=== PATIENT | male | born 1995 | race African-American/Black ===

== ENCOUNTER 2020-01-14 20:27 | Emergency (ER) | payer MEDICAID ==
[~2020-01-14] VITALS: Ht 190.5 cm; Wt 59.0 kg
[2020-01-14 21:38] LABS: Basophils # (auto) 0.1 10 ^3/uL (0-0.2); Basophils % (auto) 1.1 % (0.0-2.0); Eosinophils # (auto) 0 10 ^3/uL (0-0.8); Eosinophils % (auto) 0.5 % (0.0-7.0); Hematocrit 39.6 % (41.0-53.0); Hemoglobin 12.9 g/dL (13.5-17.5); Lymphocytes # (auto) 2.5 10 ^3/uL (0.4-5.4); Lymphocytes % (auto) 44.3 % (10.0-50.0); Mean Corpuscular Hemoglobin 28.3 pg (28.0-32.0); Mean Corpuscular Hgb Conc. 32.7 g/dL (32.0-36.0); Mean Corpuscular Volume 86.3 fL (80.0-100.0); Monocytes # (auto) 0.4 10 ^3/uL (0-1.3); Monocytes % (auto) 7.1 % (0.0-12.0); Neutrophils # (auto) 2.6 10 ^3/uL (1.6-8.6); Nucleated Red Blood Cells % 0.1 %; Platelet Count (auto) 188 10^3/uL (140-450); Red Blood Cells 4.58 10^6/uL (4.5-5.90); White Blood Cell 5.6 10^3/uL (4.4-10.8)
[2020-01-14 21:57] LABS: Albumin 4.4 g/dL (3.4-5.0); Calcium 9.1 mg/dL (8.5-10.1); Potassium 4.2 mmol/L (3.5-5.1)
[2020-01-14 22:00] LABS: Bilirubin, Total 0.4 mg/dL (0.2-1.0); Total Protein 8.1 g/dL (6.4-8.2)
[2020-01-14 22:02] LABS: BUN/Creatinine Ratio 9.5
[2020-01-15 00:22] VITALS: BP 107/48
== END 2020-01-15 01:52 | disposition home or self-care (01) ==
LOC: ER 20:31
DX: K40.90 Unilateral inguinal hernia, without obstruction or gangrene, not specified as recurrent (principal); N50.811 Right testicular pain; F17.210 Nicotine dependence, cigarettes, uncomplicated; F12.10 Cannabis abuse, uncomplicated
CPT/HCPCS: 36415; 74176; 76870; 80053; 85025

== ENCOUNTER 2020-04-23 10:26 | Emergency (ER) | payer MEDICAID ==
[~2020-04-23] VITALS: Ht 193 cm; Wt 61.2 kg
[2020-04-23] MEDS ORDERED: SODIUM CHLORIDE 0.9% 1,000 ML IVB ONE (10:42)
[2020-04-23] MEDS ORDERED: PANTOPRAZOLE 40 MG/10 ML VIAL INJ IV STA (10:42)
[2020-04-23] MEDS ORDERED: MORPHINE SULFATE 4 MG/ML SYR/VIAL IV ONE (10:45)
[2020-04-23] MEDS ORDERED: PROCHLORPERAZINE EDISYLATE 5 MG/ML 2ML VIAL IV ONE (10:45)
[2020-04-23 11:09] LABS: Basophils # (auto) 0.1 10 ^3/uL (0-0.2); Basophils % (auto) 0.9 % (0.0-2.0); Eosinophils # (auto) 0 10 ^3/uL (0-0.8); Eosinophils % (auto) 0.1 % (0.0-7.0); Hematocrit 41.8 % (41.0-53.0); Hemoglobin 13.7 g/dL (13.5-17.5); Lymphocytes # (auto) 1.8 10 ^3/uL (0.4-5.4); Mean Corpuscular Hemoglobin 28.4 pg (28.0-32.0); Mean Corpuscular Hgb Conc. 32.8 g/dL (32.0-36.0); Mean Corpuscular Volume 86.5 fL (80.0-100.0); Monocytes # (auto) 0.4 10 ^3/uL (0-1.3); Monocytes % (auto) 6.6 % (0.0-12.0); Neutrophils # (auto) 4.3 10 ^3/uL (1.6-8.6); Neutrophils % (auto) 65.4 % (37.0-80.0); Nucleated Red Blood Cells % 0.1 %; Platelet Count (auto) 184 10^3/uL (140-450); Red Blood Cells 4.83 10^6/uL (4.5-5.90); Red Cell Distribution Width 12.8 % (11.8-14.3); White Blood Cell 6.5 10^3/uL (4.4-10.8)
[2020-04-23 11:31] LABS: Albumin 4.3 g/dL (3.4-5.0); BUN/Creatinine Ratio 10.5; Calcium 9.4 mg/dL (8.5-10.1); Potassium 3.3 mmol/L (3.5-5.1)
[2020-04-23 11:37] LABS: Bilirubin, Total 1.1 mg/dL (0.2-1.0); Total Protein 8.3 g/dL (6.4-8.2)
[2020-04-23 13:01] VITALS: BP 104/43
== END 2020-04-23 13:14 | disposition home or self-care (01) ==
LOC: ER 10:26 → EDBD 10:26 → ER 13:14
DX: F12.188 Cannabis abuse with other cannabis-induced disorder (principal); R11.2 Nausea with vomiting, unspecified
CPT/HCPCS: 36415; 80053; 83690; 85025; 96361; 96374; 96375; 99284; C9113; J0780; J2270; J7030

== ENCOUNTER 2020-07-03 09:57 | Emergency (ER) | payer MEDICAID, OTHER ==
[~2020-07-03] VITALS: Ht 182.9 cm; Wt 77.1 kg
[2020-07-03] MEDS ORDERED: SODIUM CHLORIDE 0.9% 1,000 ML IVB ONE (11:15)
[2020-07-03 12:11] LABS: Basophils # (auto) 0 10 ^3/uL (0-0.2); Basophils % (auto) 0.5 % (0.0-2.0); Eosinophils # (auto) 0 10 ^3/uL (0-0.8); Hematocrit 41.3 % (41.0-53.0); Hemoglobin 13.4 g/dL (13.5-17.5); Lymphocytes # (auto) 1.3 10 ^3/uL (0.4-5.4); Lymphocytes % (auto) 17.4 % (10.0-50.0); Mean Corpuscular Hemoglobin 28.2 pg (28.0-32.0); Mean Corpuscular Hgb Conc. 32.5 g/dL (32.0-36.0); Mean Corpuscular Volume 86.7 fL (80.0-100.0); Monocytes # (auto) 0.6 10 ^3/uL (0-1.3); Monocytes % (auto) 7.6 % (0.0-12.0); Neutrophils # (auto) 5.5 10 ^3/uL (1.6-8.6); Neutrophils % (auto) 74.5 % (37.0-80.0); Platelet Count (auto) 197 10^3/uL (140-450); Red Blood Cells 4.76 10^6/uL (4.5-5.90); Red Cell Distribution Width 12.5 % (11.8-14.3); White Blood Cell 7.4 10^3/uL (4.4-10.8)
[2020-07-03 12:30] LABS: Albumin 4.4 g/dL (3.4-5.0); Calcium 9.2 mg/dL (8.5-10.1); Potassium 3.3 mmol/L (3.5-5.1)
[2020-07-03 12:36] LABS: BUN/Creatinine Ratio 8.8; Bilirubin, Total 0.8 mg/dL (0.2-1.0); Total Protein 8.1 g/dL (6.4-8.2)
[2020-07-03] MEDS ORDERED: POTASSIUM EFFERVESENT TAB 25 MEQ GT ONE (14:00)
[2020-07-03] MEDS ORDERED: ONDANSETRON ODT 4 MG TAB PO ONE (15:30)
[2020-07-03 17:54] VITALS: BP 97/40
== END 2020-07-03 16:53 | disposition home or self-care (01) ==
LOC: ER 09:57 → EDBD 09:57 → ER 16:53
DX: K52.9 Noninfective gastroenteritis and colitis, unspecified (principal); E87.6 Hypokalemia; F17.210 Nicotine dependence, cigarettes, uncomplicated
CPT/HCPCS: 36415; 71045; 74176; 80053; 82150; 83690; 83735; 85025; 93005; 96360; 99285; J7030; Q0162

== ENCOUNTER 2020-12-17 02:56 | Emergency (ER) | payer OTHER ==
[~2020-12-17] VITALS: Ht 190.5 cm; Wt 68.0 kg
[2020-12-17 04:00] LABS: Basophils # (auto) 0 10 ^3/uL (0-0.2); Basophils % (auto) 0.2 % (0.0-2.0); Eosinophils # (auto) 0 10 ^3/uL (0-0.8); Hemoglobin 12.2 g/dL (13.5-17.5); Lymphocytes % (auto) 10.3 % (10.0-50.0); Mean Corpuscular Hemoglobin 28.3 pg (28.0-32.0); Mean Corpuscular Hgb Conc. 32.9 g/dL (32.0-36.0); Mean Corpuscular Volume 85.8 fL (80.0-100.0); Monocytes # (auto) 0.2 10 ^3/uL (0-1.3); Monocytes % (auto) 2.5 % (0.0-12.0); Neutrophils # (auto) 8.1 10 ^3/uL (1.6-8.6); Nucleated Red Blood Cells % 0.1 %; Platelet Count (auto) 204 10^3/uL (140-450); Red Blood Cells 4.31 10^6/uL (4.5-5.90); Red Cell Distribution Width 13.1 % (11.8-14.3); White Blood Cell 9.3 10^3/uL (4.4-10.8)
[2020-12-17] MEDS ORDERED: SODIUM CHLORIDE 0.9% 1,000 ML IV ONE (04:15)
[2020-12-17] MEDS ORDERED: ONDANSETRON HCL 4 MG/2 ML VIAL IV ONE (04:15)
[2020-12-17 04:21] LABS: Albumin 4.1 g/dL (3.4-5.0); Calcium 8.7 mg/dL (8.5-10.1); Potassium 3.6 mmol/L (3.5-5.1)
[2020-12-17 04:26] LABS: Bilirubin, Total 0.6 mg/dL (0.2-1.0)
[2020-12-17 05:21] LABS: Urine Bacteria NONE SEEN /hpf (None Seen); Urine Blood Negative /uL (Negative); Urine Mucus FEW (None Seen); Urine Specific Gravity 1.016 (1.001-1.035); Urine WBC 4 /hpf (0 - 3)
[2020-12-17 06:10] VITALS: BP 109/55
== END 2020-12-17 06:14 | disposition home or self-care (01) ==
LOC: EDBD 02:56 → ER 03:01
DX: K52.9 Noninfective gastroenteritis and colitis, unspecified (principal); F17.210 Nicotine dependence, cigarettes, uncomplicated
CPT/HCPCS: 36415; 74176; 80053; 81001; 82150; 83690; 85025; 96361; 96374; 99284; J2405; J7030

== ENCOUNTER 2020-12-18 11:04 | Emergency (ER) | payer OTHER ==
[~2020-12-18] VITALS: Ht 190.5 cm; Wt 72.6 kg
[2020-12-18] MEDS ORDERED: SODIUM CHLORIDE 0.9% 1,000 ML IV ONE ×2 (11:30)
[2020-12-18 13:06] LABS: Basophils # (auto) 0 10 ^3/uL (0-0.2); Basophils % (auto) 0.6 % (0.0-2.0); Eosinophils # (auto) 0 10 ^3/uL (0-0.8); Eosinophils % (auto) 0.2 % (0.0-7.0); Hematocrit 36.5 % (41.0-53.0); Hemoglobin 12.2 g/dL (13.5-17.5); Lymphocytes # (auto) 1.1 10 ^3/uL (0.4-5.4); Lymphocytes % (auto) 13.7 % (10.0-50.0); Mean Corpuscular Hemoglobin 28.7 pg (28.0-32.0); Mean Corpuscular Hgb Conc. 33.3 g/dL (32.0-36.0); Monocytes # (auto) 0.5 10 ^3/uL (0-1.3); Monocytes % (auto) 6.6 % (0.0-12.0); Neutrophils # (auto) 6.1 10 ^3/uL (1.6-8.6); Neutrophils % (auto) 78.9 % (37.0-80.0); Nucleated Red Blood Cells % 0.1 %; Platelet Count (auto) 184 10^3/uL (140-450); Red Blood Cells 4.24 10^6/uL (4.5-5.90); Red Cell Distribution Width 12.7 % (11.8-14.3); White Blood Cell 7.8 10^3/uL (4.4-10.8)
[2020-12-18 13:12] LABS: INR 1.1 (0.9-1.15); Partial Thromboplastin Time 31.2 sec (23.0-31.2)
[2020-12-18 13:24] LABS: Anion Gap 6 (5-15); BUN/Creatinine Ratio 13.3; Blood Urea Nitrogen 11 mg/dL (7-18); Calcium 8.8 mg/dL (8.5-10.1); Carbon Dioxide 26 mmol/L (21-32); Chloride 106 mmol/L (98-107); GFR African American 144 mL/min; GFR Non-African American 119 mL/min; Glucose 98 mg/dL (74-106); Potassium 3.5 mmol/L (3.5-5.1); Sodium 138 mmol/L (136-145)
[2020-12-18 13:34] LABS: Alanine Aminotransferase 21 U/L (16-61); Alkaline Phosphatase 40 U/L (45-117); Aspartate Aminotransferase 20 U/L (15-37); Bilirubin, Total 1.1 mg/dL (0.2-1.0); Total Protein 7.2 g/dL (6.4-8.2)
[2020-12-18 13:44] LABS: Amylase 91 U/L (25-115); Lipase 55 U/L (73-393)
[2020-12-18] MEDS ORDERED: KETOROLAC TROMETH 30 MG/ML 1ML VIAL IV ONE (14:30)
[2020-12-18] MEDS ORDERED: PROMETHAZINE HCL 25 MG/ML 1ML IV ONE (15:00)
[2020-12-18 15:07] LABS: Urine WBC None Seen /hpf (0 - 3)
[2020-12-18 15:25] LABS: Urine Amorphous Crystal MANY /hpf (None Seen); Urine Bacteria NONE SEEN /hpf (None Seen); Urine Blood Negative /uL (Negative); Urine Mucus FEW (None Seen); Urine Specific Gravity 1.026 (1.001-1.035)
[2020-12-18 15:51] LABS: Alcohol, Urine < 3.0 mg/dL (0-10); Amphetamine Screen, Urine NEGATIVE (NEGATIVE); Barbiturate Scree,Urine NEGATIVE (NEGATIVE); Benzodiazephine Screen, Urine NEGATIVE (NEGATIVE); Cannabinoid Screen, Urine POSITIVE (NEGATIVE); Cocaine Screen, Urine NEGATIVE (NEGATIVE); Opiate Scree,Urine NEGATIVE (NEGATIVE); Phencyclidine Screen, Urine NEGATIVE (NEGATIVE)
[2020-12-18 16:23] VITALS: BP 135/75
== END 2020-12-18 17:42 | disposition home or self-care (01) ==
LOC: EDBD 11:04 → ER 11:04
DX: R10.84 Generalized abdominal pain (principal); F12.10 Cannabis abuse, uncomplicated; F17.210 Nicotine dependence, cigarettes, uncomplicated; R11.2 Nausea with vomiting, unspecified
CPT/HCPCS: 36415; 71045; 74176; 80053; 80307; 81001; 82150; 83690; 84484; 85025; 85610; 85730; 93005; 96361; 96374; 96375; 99285; J1885; J2550; J7030

== ENCOUNTER 2022-07-10 23:03 | Emergency (ER) | payer OTHER ==
[~2022-07-10] VITALS: Ht 190.5 cm; Wt 67.0 kg
[2022-07-10 23:36] LABS: Basophils # (auto) 0 10 ^3/uL (0-0.2); Basophils % (auto) 0.5 % (0.0-2.0); Eosinophils # (auto) 0 10 ^3/uL (0-0.8); Hematocrit 38.4 % (41.0-53.0); Hemoglobin 12.6 g/dL (13.5-17.5); Lymphocytes # (auto) 0.7 10 ^3/uL (0.4-5.4); Lymphocytes % (auto) 7.1 % (10.0-50.0); Mean Corpuscular Hemoglobin 28.1 pg (28.0-32.0); Mean Corpuscular Hgb Conc. 32.8 g/dL (32.0-36.0); Mean Corpuscular Volume 85.9 fL (80.0-100.0); Monocytes # (auto) 0.2 10 ^3/uL (0-1.3); Monocytes % (auto) 1.9 % (0.0-12.0); Neutrophils # (auto) 8.6 10 ^3/uL (1.6-8.6); Neutrophils % (auto) 90.5 % (37.0-80.0); Red Blood Cells 4.47 10^6/uL (4.5-5.90); Red Cell Distribution Width 12.9 % (11.8-14.3); White Blood Cell 9.5 10^3/uL (4.4-10.8)
[2022-07-10 23:52] LABS: Albumin 4.5 g/dL (3.4-5.0); Calcium 9.5 mg/dL (8.5-10.1); Potassium 3.5 mmol/L (3.5-5.1)
[2022-07-10 23:55] LABS: BUN/Creatinine Ratio 8.9; Bilirubin, Total 0.5 mg/dL (0.2-1.0); Total Protein 8.5 g/dL (6.4-8.2)
[2022-07-11] MEDS ORDERED: ONDANSETRON HCL 4 MG/2 ML VIAL IV ONE (00:15)
[2022-07-11] MEDS ORDERED: SODIUM CHLORIDE 0.9% 1,000 ML IV ONE (00:15)
[2022-07-11] MEDS ORDERED: MORPHINE SULFATE 4 MG/ML SYR/VIAL IV ONE (00:15)
[2022-07-11 05:55] VITALS: BP 120/74
== END 2022-07-11 06:02 | disposition home or self-care (01) ==
LOC: ER 23:03 → EDBD 23:03 → ER 07-11 05:59
DX: R10.31 Right lower quadrant pain (principal); F17.210 Nicotine dependence, cigarettes, uncomplicated; F12.10 Cannabis abuse, uncomplicated
CPT/HCPCS: 36415; 74176; 80053; 82150; 83690; 85025; 96361; 96374; 96375; 99285; J2270; J2405; J7030

== ENCOUNTER 2025-03-18 09:05 | Emergency (ER) | payer SELFPAY ==
[~2025-03-18] VITALS: Ht 190.5 cm; Wt 69.0 kg
[2025-03-18 09:27] VITALS: BP 151/89; PULSE 48; RESP 18; TEMP 98.9; O2SAT 100
[2025-03-18] MEDS ORDERED: SODIUM CHLORIDE 0.9% 1,000 ML IV ONE (09:30)
[2025-03-18] MEDS ORDERED: ONDANSETRON HCL 4 MG/2 ML VIAL IV ONE (09:30)
--- NOTE | 2025-03-18 09:40 | ED.PDOC ---
GI ASSESSMENT HPI Comments 29 year old male KAMAR presents to the ED with chief complaint of abdominal pain. Patient reports that he has been experiencing lower abdominal pain with associated nausea and vomiting since this morning. Patient denies any hematemesis, melena, dizziness, diarrhea, chest pain, SOB, or fever. Chief Complaint: Abdominal Pain Time Seen by MD: 09:35 Primary Care Provider: KEVIN Reviewed Notes: Nurses Notes, Medications, Allergies Allergies: Coded Allergies: NO KNOWN ALLERGIES (Unverified , 12/18/20) Information Source: Patient Mode of Arrival: EMS Timing: Days Duration: Since onset Prehospital treatment: None Quality: Aching Vomitus: None Stool: Normal Severity: Moderate Recent: None Recent Hx of: None Pain Location: Suprapubic Modifying Factors: Nothing Associated sign and symptoms: Nausea, Vomiting, Abdominal Pain Past Medical History PAST MEDICAL HISTORY: Denies Surgical History: Denies all surgeries Family History Family History: Reviewed,noncontributory to illness Social History Smoker: Cigarettes Alcohol: Occasionally Drugs: Marijuana Lives In: Home Constitutional: denies: chills, diaphoresis, fatigue, fever, malaise, sweats, weakness, others EENTM: denies: blurred vision, double vision, ear bleeding, ear discharge, ear drainage, ear pain, ear ringing, eye pain, eye redness, hearing loss, mouth pain, mouth swelling, nasal discharge, nose bleeding, nose congestion, nose pain, photophobia, tearing, throat pain, throat swelling, voice changes, others Respiratory: denies: cough, hemoptysis, orthopnea, SOB at rest, shortness of breath, SOB with excertion, stridor, wheezing, others Cardiovascular: denies: chest pain, dizzy spells, diaphoresis, Dyspnea on exertion, edema, irregular heart beat, left arm pain, lightheadedness, palpitations, PND, syncope, others Gastrointestinal: reports: abdominal pain, nausea, vomiting; denies: abdomen distended, blood streaked bowels, constipated, diarrhea, dysphagia, difficulty swallowing, hematemesis, melena, poor appetite, poor fluid intake, rectal bleeding, rectal pain, others Genitourinary: denies: burning, dysuria, flank pain, frequency, hematuria, incontinence, penile discharge, penile sore, pain, testicle pain, testicle swelling, urgency, others Neurological: denies: dizziness, fainting, headache, left sided numbness, left sided weakness, numbness, paresthesia, pre-existing deficit, right sided numbness, right sided weakness, seizure, speech problems, tingling, tremors, weakness, others Musculoskeletal: denies: back pain, gout, joint pain, joint swelling, muscle pain, muscle stiffness, neck pain, others Integumetry: denies: bruises, change in color, change in hair/nails, dryness, laceration, lesions, lumps, rash, wounds, others Allergic/Immunocompromised: denies: Difficulty Healing, Frequent Infections, Hives, Itching, others Hematologic/Lymphatic: denies: anemia, blood clots, easy bleeding, easy bruising, swollen glands, others Endocrine: denies: excessive hunger, excessive sweating, excessive thirst, excessive urination, flushing, intolerance to cold, intolerance to heat, unexplained weight gain, unexplained weight loss, others Psychiatric: denies: anxiety, bipolar disorder, depression, hopeless, panic disorder, schizophrenia, sleepless, suicidal, others All Other Systems: Reviewed and Negative Physical Exam General Appearance: Moderate Distress, Normal HEENT: Normal ENT Inspection, PERRL/EOMI Neck: Full Range of Motion, Non-Tender, Normal, Normal Inspection Respiratory: Chest Non-Tender, Lungs Clear, No Accessory Muscle Use, No Respiratory Distress, Normal Breath Sounds Cardiovascular: No Edema, No JVD, No Murmur, No Gallop, Normal Peripheral Pulses, Regular Rate/Rhythm Breast Exam: Deferred Gastrointestinal: No Organomegaly, Non Tender, No Pulsatile Mass, Normal Bowel Sounds, Soft Genitalia: Deferred Pelvic: Deferred Rectal: Deferred Extremities: No calf tenderness, Normal capillary refill, Normal inspection, Normal range of motion, Non-tender, No pedal edema Musculoskeletal : Apperance: Normal Neurologic: Alert, ctrs II-XII nml as Tested, No Motor Deficits, Normal Affect, Normal Mood, No Sensory Deficits Cerebellar Function: Normal Reflexes: Normal Skin: Dry, Normal Color, Warm Peripheral Pulses: 3+ Radial (R), 3+ Radial (L) Lymphatic: No Adenopathy Was a procedure done? Was a procedure done?: No GI differential Dx Differential Diagnosis: Constipation, Diverticular disease, Esophagitis, Gastritis/PUD, Gastroenteritis, Dehydration, Drug toxicity, Electrolyte Imbalance, Food Poisoning, Bacterial, Viral X-Ray, Labs, Meds, VS Vital Signs Date Time Temp Pulse Resp B/P (MAP) Pulse Ox O2 Delivery O2 Flow Rate FiO2 03/18/25 09:27 98.9 48 18 151/89 (109) 100 98.9 Lab Test 03/18/25 09:38 Range/Units White Blood Count 6.8 4.4-10.8 10^3/uL Red Blood Count 4.80 4.5-5.90 10^6/uL Hemoglobin 13.6 13.5-17.5 g/dL Hematocrit 41.2 41.0-53.0 % Mean Corpuscular Volume 85.8 80.0-100.0 fL Mean Corpuscular Hemoglobin 28.3 28.0-32.0 pg Mean Corpuscular Hemoglobin Concent 33.0 32.0-36.0 g/dL Red Cell Distribution Width 12.8 11.8-14.3 % Platelet Count 226 140-450 10^3/uL Mean Platelet Volume 8.5 6.9-10.8 fL Neutrophils (%) (Auto) 75.0 37.0-80.0 % Lymphocytes (%) (Auto) 18.3 10.0-50.0 % Monocytes (%) (Auto) 5.5 0.0-12.0 % Eosinophils (%) (Auto) 0.6 0.0-7.0 % Basophils (%) (Auto) 0.6 0.0-2.0 % Neutrophils # (Auto) 5.1 1.6-8.6 10 ^3/uL Lymphocytes # (Auto) 1.2 0.4-5.4 10 ^3/uL Monocytes # (Auto) 0.4 0-1.3 10 ^3/uL Eosinophils # (Auto) 0 0-0.8 10 ^3/uL Basophils # (Auto) 0 0-0.2 10 ^3/uL Nucleated Red Blood Cells 0.1 % Sodium Level 141 136-145 mmol/L Potassium Level 3.8 3.5-5.1 mmol/L Chloride Level 105 98-107 mmol/L Carbon Dioxide Level 30 20-31 mmol/L Anion Gap 6 5-15 Blood Urea Nitrogen 11 9-23 mg/dL Creatinine 0.87 0.700-1.30 mg/dL Glomerular Filtration Rate Calc 118 >90 mL/min BUN/Creatinine Ratio 12.6 10.0-20.0 Serum Glucose 113 H 74-106 mg/dL Calcium Level 10.3 8.7-10.4 mg/dL Patient alert. Came in because of abdominal discomfort. Vitals stable. Answering questions. Abdomen is soft nontender. Ambulating. WBC within normal limits. Hemoglobin within normal limits. Saturation pristine on room air. Serum glucose slightly elevated. Explained to the patient about his results. Was told to follow up with his primary care physician. Was told to come back if there is any problem. Time of 1ST Reevaluation: 10:35 Reevaluation 1ST: Improved Time of 2ND Reevaluation: 17:32 Reevaluation 2ND: Improved Patient Education/Counseling: Diagnosis, Treatment Family Education/Counseling: No Family Present Additional Information The following tests were ordered, and results were reviewed by me: CBC, BMP, UDS Additional Information was gathered from interviewing the following independent historians: EMS I reviewed and agreed with the following test results read by other providers: none I discussed treatment and results with medical personnel and: patient Comprehensive systems review obtained and negative except for what is stated in the HPI. Departure 1 Departure Time of Disposition: 17:33 Impression: Primary Impression: Gastritis Qualified Codes: K29.00 - Acute gastritis without bleeding Disposition: 01 HOME / SELF CARE / HOMELESS Condition: Good Discharged With: Self Critical Care Note Critical Care Time?: No Stability Stability form required: No Heart Score Heart Score: Heart Score Response (Comments) Value History N/A 0 EKG N/A 0 Age N/A 0 Risk Factors N/A 0 Troponin N/A 0 Total 0 I personally scribed for FELY CUBA MD ([email or web address]) on 03/18/25 at 09:40. Electronically submitted by Mo Winkler ([email or web address]). FELY CUBA MD March 18, 2025 09:40
[2025-03-18 09:59] LABS: Basophils # (auto) 0 10 ^3/uL (0-0.2); Basophils % (auto) 0.6 % (0.0-2.0); Eosinophils # (auto) 0 10 ^3/uL (0-0.8); Eosinophils % (auto) 0.6 % (0.0-7.0); Hematocrit 41.2 % (41.0-53.0); Hemoglobin 13.6 g/dL (13.5-17.5); Lymphocytes # (auto) 1.2 10 ^3/uL (0.4-5.4); Lymphocytes % (auto) 18.3 % (10.0-50.0); Mean Corpuscular Hemoglobin 28.3 pg (28.0-32.0); Mean Corpuscular Volume 85.8 fL (80.0-100.0); Monocytes # (auto) 0.4 10 ^3/uL (0-1.3); Monocytes % (auto) 5.5 % (0.0-12.0); Neutrophils # (auto) 5.1 10 ^3/uL (1.6-8.6); Nucleated Red Blood Cells % 0.1 %; Platelet Count (auto) 226 10^3/uL (140-450); Red Cell Distribution Width 12.8 % (11.8-14.3); White Blood Cell 6.8 10^3/uL (4.4-10.8)
[2025-03-18 10:07] LABS: Chloride 105 mmol/L (98-107); Potassium 3.8 mmol/L (3.5-5.1); Sodium 141 mmol/L (136-145)
[2025-03-18 10:08] LABS: Anion Gap 6 (5-15); Carbon Dioxide 30 mmol/L (20-31)
[2025-03-18 10:09] LABS: Calcium 10.3 mg/dL (8.7-10.4)
[2025-03-18 10:13] LABS: BUN/Creatinine Ratio 12.6 (10.0-20.0); Blood Urea Nitrogen 11 mg/dL (9-23)
[2025-03-18 10:14] LABS: Glucose 113 mg/dL (74-106)
== END 2025-03-18 12:52 | disposition left against medical advice (07) ==
LOC: ER 09:05 → EDBD 09:05 → ER 12:52
DX: K29.70 Gastritis, unspecified, without bleeding (principal); F17.210 Nicotine dependence, cigarettes, uncomplicated; F12.90 Cannabis use, unspecified, uncomplicated
CPT/HCPCS: 36415; 80048; 82947; 85025

== ENCOUNTER 2025-07-14 07:17 | Inpatient (IN) | payer MEDICAID, OTHER ==
[~2025-07-14] VITALS: Ht 190.5 cm; Wt 64.9 kg
[2025-07-14] MEDS: SODIUM CHLORIDE 0.9% 1,000 ML IV ONE ×2 (07:30→12:24)
--- NOTE | 2025-07-14 07:31 | ED.PDOC ---
GI ASSESSMENT HPI Comments 29 year old male presents to the ED via EMS with a chief complaint of abdominal pain onset 3 days. Per EMS, patient has been experiencing lower abdominal pain for the past 3 days as well as nausea/vomiting and poor appetite. Patient states last marijuana use was 3 days ago. He has experienced similar symptoms in the past, has had endoscopy and colonoscopy, negative results. Denies any PMHx as well as chest pain, fever, chills, shortness of breath, dizziness, hematemesis, dysuria, hematuria. No other symptoms or modifying factors present at this time. Chief Complaint: Abdominal Pain Time Seen by MD: 07:25 Primary Care Provider: KEVIN Reviewed Notes: Medications, Allergies Allergies: Coded Allergies: NO KNOWN ALLERGIES (Unverified , 12/18/20) Information Source: Patient, Emergency Med Personnel Mode of Arrival: EMS Timing: Days Duration: Since onset Prehospital treatment: Other (zofran) Quality: Aching, Sharp Severity: Moderate Recent: None Recent Hx of: None Pain Location: RLQ, LLQ Modifying Factors: Nothing Associated sign and symptoms: Nausea, Vomiting, Abdominal Pain Past Medical History PAST MEDICAL HISTORY: Denies Surgical History: Denies all surgeries Family History Family History: Reviewed,noncontributory to illness Social History Smoker: Cigarettes Alcohol: Occasionally Drugs: Marijuana Lives In: Home Constitutional: denies: chills, diaphoresis, fatigue, fever, malaise, sweats, weakness, others EENTM: denies: blurred vision, double vision, ear bleeding, ear discharge, ear drainage, ear pain, ear ringing, eye pain, eye redness, hearing loss, mouth pain, mouth swelling, nasal discharge, nose bleeding, nose congestion, nose pain, photophobia, tearing, throat pain, throat swelling, voice changes, others Respiratory: denies: cough, hemoptysis, orthopnea, SOB at rest, shortness of breath, SOB with excertion, stridor, wheezing, others Cardiovascular: denies: chest pain, dizzy spells, diaphoresis, Dyspnea on exertion, edema, irregular heart beat, left arm pain, lightheadedness, palpitations, PND, syncope, others Gastrointestinal: reports: abdominal pain, nausea, poor appetite, vomiting; denies: abdomen distended, blood streaked bowels, constipated, diarrhea, dysphagia, difficulty swallowing, hematemesis, melena, poor fluid intake, rectal bleeding, rectal pain, others Genitourinary: denies: burning, dysuria, flank pain, frequency, hematuria, incontinence, penile discharge, penile sore, pain, testicle pain, testicle swelling, urgency, others Neurological: denies: dizziness, fainting, headache, left sided numbness, left sided weakness, numbness, paresthesia, pre-existing deficit, right sided numbness, right sided weakness, seizure, speech problems, tingling, tremors, weakness, others Musculoskeletal: denies: back pain, gout, joint pain, joint swelling, muscle pain, muscle stiffness, neck pain, others Integumetry: denies: bruises, change in color, change in hair/nails, dryness, laceration, lesions, lumps, rash, wounds, others Allergic/Immunocompromised: denies: Difficulty Healing, Frequent Infections, Hives, Itching, others Hematologic/Lymphatic: denies: anemia, blood clots, easy bleeding, easy bruising, swollen glands, others Endocrine: denies: excessive hunger, excessive sweating, excessive thirst, excessive urination, flushing, intolerance to cold, intolerance to heat, unexplained weight gain, unexplained weight loss, others Psychiatric: denies: anxiety, bipolar disorder, depression, hopeless, panic disorder, schizophrenia, sleepless, suicidal, others All Other Systems: Reviewed and Negative Physical Exam General Appearance: Moderate Distress HEENT: Normal ENT Inspection, Pharynx Normal, TMs Normal Neck: Full Range of Motion, Non-Tender, Normal, Normal Inspection Respiratory: Chest Non-Tender, Lungs Clear, No Accessory Muscle Use, No Respiratory Distress, Normal Breath Sounds Cardiovascular: No Edema, No JVD, No Murmur, No Gallop, Normal Peripheral Pulses, Regular Rate/Rhythm Breast Exam: Deferred Gastrointestinal: No Organomegaly, Non Tender, No Pulsatile Mass, Normal Bowel Sounds, Soft Genitalia: Deferred Pelvic: Deferred Rectal: Deferred Extremities: No calf tenderness, Normal capillary refill, Normal inspection, Normal range of motion, Non-tender, No pedal edema Musculoskeletal : Apperance: Normal Neurologic: Alert, header dock II-XII nml as Tested, No Motor Deficits, Normal Affect, Normal Mood, No Sensory Deficits Cerebellar Function: Normal Reflexes: Normal Skin: Dry, Normal Color, Warm Peripheral Pulses: 3+ Radial (R), 3+ Radial (L) Lymphatic: No Adenopathy Was a procedure done? Was a procedure done?: No GI differential Dx Differential Diagnosis: Constipation, Diverticular disease, Esophagitis, Gastritis/PUD, Gastroenteritis X-Ray, Labs, Meds, VS Vital Signs Date Time Temp Pulse Resp B/P (MAP) Pulse Ox O2 Delivery O2 Flow Rate FiO2 07/14/25 09:00 99.3 52 16 106/69 (81) 98 99.3 07/14/25 09:00 Room Air* 0 21 07/14/25 07:29 52 07/14/25 07:17 98.6 49 18 154/96 97 98.6 Lab Test 07/14/25 07:34 Range/Units White Blood Count 6.1 4.4-10.8 10^3/uL Red Blood Count 3.69 L 4.5-5.90 10^6/uL Hemoglobin 10.6 L 13.5-17.5 g/dL Hematocrit 31.3 L 41.0-53.0 % Mean Corpuscular Volume 84.8 80.0-100.0 fL Mean Corpuscular Hemoglobin 28.8 28.0-32.0 pg Mean Corpuscular Hemoglobin Concent 33.9 32.0-36.0 g/dL Red Cell Distribution Width 12.6 11.8-14.3 % Platelet Count 189 140-450 10^3/uL Mean Platelet Volume 8.3 6.9-10.8 fL Neutrophils (%) (Auto) 71.7 37.0-80.0 % Lymphocytes (%) (Auto) 19.6 10.0-50.0 % Monocytes (%) (Auto) 7.4 0.0-12.0 % Eosinophils (%) (Auto) 0.5 0.0-7.0 % Basophils (%) (Auto) 0.8 0.0-2.0 % Neutrophils # (Auto) 4.3 1.6-8.6 10 ^3/uL Lymphocytes # (Auto) 1.2 0.4-5.4 10 ^3/uL Monocytes # (Auto) 0.4 0-1.3 10 ^3/uL Eosinophils # (Auto) 0 0-0.8 10 ^3/uL Basophils # (Auto) 0 0-0.2 10 ^3/uL Nucleated Red Blood Cells 0.0 % Sodium Level 140 136-145 mmol/L Potassium Level 2.5 *L 3.5-5.1 mmol/L Chloride Level 103 98-107 mmol/L Carbon Dioxide Level 28 20-31 mmol/L Anion Gap 9 5-15 Blood Urea Nitrogen 6 L 9-23 mg/dL Creatinine 0.65 L 0.700-1.30 mg/dL Glomerular Filtration Rate Calc 129 >90 mL/min BUN/Creatinine Ratio 9.2 L 10.0-20.0 Serum Glucose 89 74-106 mg/dL Calcium Level 7.6 L 8.7-10.4 mg/dL Current Medications Medications (Trade) Dose Ordered Sig/Laila Route Start Time Stop Time Status Last Admin Sodium Chloride 1,000 ml @ 1,000 mls/hr Q1H ONCE IV 07/14/25 07:30 07/14/25 08:29 DC 07/14/25 07:30 Ondansetron HCl (Zofran) 4 mg ONCE ONCE IV 07/14/25 07:30 07/14/25 07:31 DC 07/14/25 09:03 Patient alert. Came in because of nausea vomiting. Uses marijuana. Saturation pristine on room air. Blood pressure slightly elevated. Establish intravenous access. Was given fluids. Was given Zofran. EKG reviewed does show bradycardia. Physiologic. Denies chest pain. No leg swelling. No shortness a breath. Potassium is low. Was given potassium. Explained to the patient. Continue monitoring. Time of 1ST Reevaluation: 07:55 Reevaluation 1ST: Unchanged Patient Education/Counseling: Diagnosis, Treatment, Prognosis Family Education/Counseling: No Family Present SEPSIS Sepsis Screen Date sepsis recognized/suspect: Jul 14, 2025 Time Sepsis recognized/suspect: 714 Recent Procedure: No On Antibiotic Therapy: No Respiratory Rate >20: No Heart Rate >90: No Temp<36 C (96.8 F) or >38.3 C: No SBP <90 or MAP <65 mmHG: No New Acute Mental Status Change: No Is the patient on CPAP, BIPAP,: No Physician Orders Drug Screen (07/14/25 07:19) Potassium Chl Nas Kcl (07/14/25 11:15) Vital Signs Date Time Temp Pulse Resp B/P (MAP) Pulse Ox O2 Delivery O2 Flow Rate FiO2 07/14/25 09:00 99.3 52 16 106/69 (81) 98 99.3 07/14/25 09:00 Room Air* 0 21 07/14/25 07:29 52 07/14/25 07:17 98.6 49 18 154/96 97 98.6 Laboratory Tests Test 07/14/25 07:34 White Blood Count 6.1 10^3/uL (4.4-10.8) Medications Medications Dose Ordered Sig/Laila Route Start Time Stop Time Status Last Admin Dose Admin Ondansetron HCl 4 mg ONCE ONCE IV 07/14/25 07:30 07/14/25 07:31 DC 07/14/25 09:03 Sodium Chloride 1,000 ml @ 1,000 mls/hr Q1H ONCE IV 07/14/25 07:30 07/14/25 08:29 DC 07/14/25 07:30 Departure 1 Departure Time of Disposition: 07:33 Impression: Primary Impression: Hypokalemia Additional Impression: Acute gastroenteritis Disposition: ADMITTED INPATIENT Admit to: Med Surg Condition: Guarded Critical Care Note Critical Care Time?: No Stability Stability form required: No Heart Score Heart Score: Heart Score Response (Comments) Value History Slightly Suspicious 0 EKG Normal 0 Age <45 0 Risk Factors No known risk factors 0 Troponin N/A 0 Total 0 I personally scribed for FELY CUBA MD ([email or web address]) on 07/14/25 at 07:31. Electronically submitted by aLcey Yost ([email or web address]). FELY CUBA MD Jul 14, 2025 07:31
[2025-07-14 07:53] LABS: Hematocrit 31.3 % (41.0-53.0); Hemoglobin 10.6 g/dL (13.5-17.5); Mean Corpuscular Hemoglobin 28.8 pg (28.0-32.0); Mean Corpuscular Volume 84.8 fL (80.0-100.0); Nucleated Red Blood Cells % 0.0 %
[2025-07-14 08:02] LABS: Chloride 103 mmol/L (98-107); Sodium 140 mmol/L (136-145)
[2025-07-14 08:03] LABS: Anion Gap 9 (5-15); Carbon Dioxide 28 mmol/L (20-31)
[2025-07-14 08:08] LABS: BUN/Creatinine Ratio 9.2 (10.0-20.0); Blood Urea Nitrogen 6 mg/dL (9-23); Calcium 7.6 mg/dL (8.7-10.4); Glucose 89 mg/dL (74-106)
[2025-07-14 08:09] LABS: Potassium 2.5 mmol/L (3.5-5.1)
[2025-07-14] MEDS: ONDANSETRON HCL 4 MG/2 ML VIAL IV ONE (09:03)
[2025-07-14] MEDS: HYDROcodone-ACET 5/325MG TAB PO ONE (12:23)
[2025-07-14] MEDS: POTASSIUM CHL 20MEQ/100ML 100 ML IV SCH (12:23)
[2025-07-14] MEDS ORDERED: METO10TA4 PO (12:53)
[2025-07-14] MEDS ORDERED: FAMO20TA10 PO (12:53)
[2025-07-14] MEDS ORDERED: ACETAMINOPHEN 325 MG TAB PO PRN (13:00)
[2025-07-14] MEDS ORDERED: DOCUSATE SOD 100 MG CAP PO PRN (13:00)
[2025-07-14] MEDS ORDERED: MORPHINE SULFATE INJ 2 MG/ml SYRG IV PRN (13:00)
[2025-07-14] MEDS ORDERED: NITROGLYCERIN 0.4 MG SL TAB SL PRN (13:00)
--- NOTE | 2025-07-14 13:03 | DVHHP2 ---
History of Present Illness Reason for Visit: Abdominal pain History of Present Illness Adan Valdez is a 29-year-old male with significant past medical history of abdominal pain, nausea, and vomiting, who came to the hospital for abdominal pain. Patient states he has been experiencing abdominal pain with associated nausea and vomiting for 5 days and has not been able to eat much for the last few days. He states he has had episodes of severe abdominal pain with nausea and vomiting a few times in the last 5 years. About 5 months ago he had a colonoscopy completed, but they were not able to find anything. Patient is a daily marijuana smoker. Past Surgical History: None Smoke: <1 pack per day ALCOHOL: none Drugs: Marijuana Lives: with Family Domestic Violence: Neg Review of Systems Constitutional: No: Fever, Chills, Sweats, Weakness, Malaise, Other Eyes: No: Pain, Vision change, Conjunctivae inflammation, Eyelid inflammation, Other, Redness ENT: No: Ear pain, Ear discharge, Nose pain, Nose discharge, Nose congestion, Mouth pain, Mouth swelling, Throat pain, Throat swelling, Other Respiratory: No: Cough, Dry, Shortness of breath, SOB with excertion, Wheezing, Hemoptysis, Pleuritic Pain, Sputum, Wheezing, Other Cardiovascular: No: Chest Pain, Palpitations, Orthopnea, Paroxysmal Noc. Dyspnea, Edema, Lt Headedness, Other Gastrointestinal: Nausea, Vomiting, Abdominal Pain (RLQ & LLQ pain); No: Diarrh ea, Constipation, Melena, Hematochezia, Other Genitourinary: No Dysuria, No Frequency, No Incontinence, No Hematuria, No Retention, No Other Musculoskeletal: No: other, neck pain, shoulder pain, arm pain, back pain, hand pain, leg pain, foot pain Skin: No: Rash, Lesions, Jaundice, Bruising, Other Neurological: No: Weakness, Numbness, Incoordination, Change in speech, Confusion, Seizures, Other Allergies: Coded Allergies: NO KNOWN ALLERGIES (Unverified , 12/18/20) Medications Current Medications Medications Dose Ordered Sig/Laila Route Start Time Stop Time Status Last Admin Dose Admin Potassium Chloride 100 ml @ 50 mls/hr Q2H IV 07/14/25 11:15 07/14/25 15:14 07/14/25 12:23 50 MLS/HR Acetaminophen/ Hydrocodone Bitart 1 tab Q4HP PRN PO 07/14/25 13:00 UNV Docusate Sodium 100 mg BIDPRN PRN PO 07/14/25 13:00 UNV Acetaminophen 650 mg Q6HP PRN PO 07/14/25 13:00 UNV Morphine Sulfate 2 mg Q4HPRN PRN IV 07/14/25 13:00 UNV Nitroglycerin 0.4 mg Q5MINP PRN SL 07/14/25 13:00 UNV Morphine Sulfate 2 mg Q30M PRN IV 07/14/25 13:00 UNV Metoclopramide HCl 10 mg Q6HPRN PRN IV 07/14/25 13:00 UNV Sucralfate 1 gm QIDACHS PO 07/14/25 17:00 UNV Pantoprazole Sodium 40 mg BID IV 07/14/25 22:00 UNV Exam Vital Signs Vital Signs Date Time Temp Pulse Resp B/P (MAP) Pulse Ox O2 Delivery O2 Flow Rate FiO2 07/14/25 11:00 54 11 108/54 (72) 98 07/14/25 09:00 99.3 99.3 07/14/25 09:00 Room Air* 0 21 General Appearance: Alert, Oriented X3, Cooperative, mild distress HEENT: Atraumatic, PERRLA Respiratory: Clear to auscultation, Normal air movement Cardiovascular: Regular rate, Normal S1, Normal S2, No murmurs Abdominal: Normal bowel sounds, Soft, Other (RLQ and LLQ tenderness on palpitation) Extremities: No clubbing, No cyanosis, No edema, Normal pulses, No tenderness/swelling Skin: No rashes, No breakdown, No significant lesion Neuro: Normal gait, Normal speech, Strength at 5/5 X4 ext Psych/Mental Status: Mental status NL, Mood NL Labs/Xrays Labs Test 07/14/25 07:34 Range/Units White Blood Count 6.1 4.4-10.8 10^3/uL Red Blood Count 3.69 L 4.5-5.90 10^6/uL Hemoglobin 10.6 L 13.5-17.5 g/dL Hematocrit 31.3 L 41.0-53.0 % Mean Corpuscular Volume 84.8 80.0-100.0 fL Mean Corpuscular Hemoglobin 28.8 28.0-32.0 pg Mean Corpuscular Hemoglobin Concent 33.9 32.0-36.0 g/dL Red Cell Distribution Width 12.6 11.8-14.3 % Platelet Count 189 140-450 10^3/uL Mean Platelet Volume 8.3 6.9-10.8 fL Neutrophils (%) (Auto) 71.7 37.0-80.0 % Lymphocytes (%) (Auto) 19.6 10.0-50.0 % Monocytes (%) (Auto) 7.4 0.0-12.0 % Eosinophils (%) (Auto) 0.5 0.0-7.0 % Basophils (%) (Auto) 0.8 0.0-2.0 % Neutrophils # (Auto) 4.3 1.6-8.6 10 ^3/uL Lymphocytes # (Auto) 1.2 0.4-5.4 10 ^3/uL Monocytes # (Auto) 0.4 0-1.3 10 ^3/uL Eosinophils # (Auto) 0 0-0.8 10 ^3/uL Basophils # (Auto) 0 0-0.2 10 ^3/uL Nucleated Red Blood Cells 0.0 % Sodium Level 140 136-145 mmol/L Potassium Level 2.5 *L 3.5-5.1 mmol/L Chloride Level 103 98-107 mmol/L Carbon Dioxide Level 28 20-31 mmol/L Anion Gap 9 5-15 Blood Urea Nitrogen 6 L 9-23 mg/dL Creatinine 0.65 L 0.700-1.30 mg/dL Glomerular Filtration Rate Calc 129 >90 mL/min BUN/Creatinine Ratio 9.2 L 10.0-20.0 Serum Glucose 89 74-106 mg/dL Calcium Level 7.6 L 8.7-10.4 mg/dL SEPSIS Sepsis Screen Date sepsis recognized/suspect: Jul 14, 2025 Time Sepsis recognized/suspect: 09 Recent Procedure: No On Antibiotic Therapy: No Respiratory Rate >20: No Heart Rate >90: No Temp<36 C (96.8 F) or >38.3 C: No SBP <90 or MAP <65 mmHG: No New Acute Mental Status Change: No Is the patient on CPAP, BIPAP,: No Physician Orders Drug Screen (07/14/25 07:19) Potassium Chl 20meq/100ml (07/14/25 11:15) Sodium Chloride 0.9% (07/14/25 12:30) Admit (07/14/25 12:46) Code Status (07/14/25 12:46) Hydrocodone-Acet 5/325mg Tab (Hershey 5/32 (07/14/25 13:00) Docusate Sodium Capsule (Colace Capsule) (07/14/25 13:00) Complete Blood Count (07/15/25 04:00) Comprehensive Metabolic Panel (07/15/25 04:00) Condition: Serious (07/14/25 12:46) Acetaminophen Tablet (Tylenol Tablet) (07/14/25 13:00) Clear Liq Diet (07/14/25 Lunch) Morphine Sulfate Injection (07/14/25 13:00) Nitroglycerin Sublingual (Ntrostat Subli (07/14/25 13:00) Morphine Sulfate Injection (07/14/25 13:00) Stat Ekg For Chest Pain (07/14/25 12:46) Notify Md Of Changes From Base (07/14/25 12:46) Antenna Installer For 24 Hours (07/14/25 12:46) Emergency Dysrhythmia Protocol (07/14/25 12:46) Rhythm Strips Once Every Shift (07/14/25 12:46) Oxygen By Nasal Cannula (07/14/25 12:46) Metoclopramide Injection (Reglan Injecti (07/14/25 13:00) Sucralfate Tab (Carafate Tab) (07/14/25 17:00) Pantoprazole (Protonix) (07/14/25 13:00) Pantoprazole (Protonix) (07/14/25 22:00) Vital Signs Date Time Temp Pulse Resp B/P (MAP) Pulse Ox O2 Delivery O2 Flow Rate FiO2 07/14/25 11:00 54 11 108/54 (72) 98 07/14/25 09:00 99.3 52 16 106/69 (81) 98 99.3 07/14/25 09:00 Room Air* 0 21 07/14/25 07:29 52 07/14/25 07:17 98.6 49 18 154/96 97 98.6 Laboratory Tests Test 07/14/25 07:34 White Blood Count 6.1 10^3/uL (4.4-10.8) Medications Medications Dose Ordered Sig/Laila Route Start Time Stop Time Status Last Admin Dose Admin Acetaminophen/ Hydrocodone Bitart 1 tab ONCE ONCE PO 07/14/25 12:30 07/14/25 12:31 DC 07/14/25 12:23 1 TAB Ondansetron HCl 4 mg ONCE ONCE IV 07/14/25 07:30 07/14/25 07:31 DC 07/14/25 09:03 4 MG Potassium Chloride 100 ml @ 50 mls/hr Q2H IV 07/14/25 11:15 07/14/25 15:14 07/14/25 12:23 50 MLS/HR Sodium Chloride 1,000 ml @ 100 mls/hr Q10H ONCE IV 07/14/25 12:30 07/14/25 22:29 07/14/25 12:24 100 MLS/HR Sodium Chloride 1,000 ml @ 1,000 mls/hr Q1H ONCE IV 07/14/25 07:30 07/14/25 08:29 DC 07/14/25 07:30 1,000 MLS/HR Assessment/Plan Assessment/Plan Assessment: Hypokalemia, Acute gastroenteritis, Hypocalcemia, Plan: Admit to Tele, Manage/Monitor electrolytes closely, IV Protonix, IV hydration, IV antibiotics, IV antiemetics, PO Carafate, Consider GI consult, Home medications reconciled, Plan discussed with: Patient My Orders Orders - MINA RICHARDSON [employer] FILLING 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 TENDER Procedure Category Date Status Time Sodium Chloride 0.9% PHA 07/14/25 In Process 12:30 Admit ADMIT 07/14/25 Transmitted 12:46 Code Status CODE 07/14/25 Transmitted 12:46 Hydrocodone-Acet PHA 07/14/25 Logged 5/325mg Tab (Hershey 13:00 Docusate Sodium PHA 07/14/25 Logged Capsule (Colace 13:00 Complete Blood Count LAB 07/15/25 Verified 04:00 Comprehensive LAB 07/15/25 Verified Metabolic Panel 04:00 Condition: Serious LITA 07/14/25 In Process 12:46 Acetaminophen Tablet PHA 07/14/25 Logged (Tylenol Tablet) 13:00 Clear Liq Diet DIET 07/14/25 Transmitted Lunch Morphine Sulfate PHA 07/14/25 Logged Injection 13:00 Nitroglycerin PHA 07/14/25 Logged Sublingual (Ntrostat 13:00 Morphine Sulfate PHA 07/14/25 Logged Injection 13:00 Stat Ekg For Chest [facility] 07/14/25 In Process Pain 12:46 Notify Md Of Changes [facility] 07/14/25 In Process From Base 12:46 Antenna Installer For [facility] 07/14/25 In Process 24 Hours 12:46 Emergency Dysrhythmia [facility] 07/14/25 In Process Protocol 12:46 Rhythm Strips Once [facility] 07/14/25 In Process Every Shift 12:46 Oxygen By Nasal RT 07/14/25 Transmitted Cannula 12:46 Metoclopramide [facility] 07/14/25 Logged Injection (Reglan 13:00 Sucralfate Tab [facility] 07/14/25 Logged (Carafate Tab) 17:00 Pantoprazole [facility] 07/14/25 Logged (Protonix) 13:00 Pantoprazole [facility] 07/14/25 Logged (Protonix) 22:00 Date of Service: Jul 14, 2025 Billing Provider: MINA RICHARDSON Common Visit Codes: [id number] INP/OBS CARE (MOD) MINA RICHARDSON Jul 14, 2025 13:02
[2025-07-14] MEDS: PANTOPRAZOLE 40 MG/10 ML VIAL INJ IV ONE (13:57)
[2025-07-14] MEDS ORDERED: CALCIUM GLUC 1,000mg/50ml-NS 50 ML IV SCH (15:30)
[2025-07-14] MEDS ORDERED: IOHEXOL 300 MG/ML 100ML BOTTLE IJ ONE (15:43)
--- NOTE | 2025-07-14 16:34 | DVH ---
Indication: abdominal pain Technique: CT axial images of the abdomen and pelvis are obtained without contrast. Coronal and sagit jaxon reformats were obtained. Radiation Dose Information: CTDI volume is 5.07 mGy. Dose-length product is 272 mGy*cm Comparison: CT ABD/PEL W - IV on DOS: 07/10/25, FINDINGS: There is limited interpretation of the abdomen and pelvis without administration of intravenous contr ast. Lung bases demonstrate no pleural effusion. Adrenal glands, spleen, pancreas unremarkable. No enhancing hepatic lesion. No CT evidence for lorenzo lithiasis. No hydronephrosis. Left renal cyst measuring 2 cm. Stomach is partially distended. Small bowel loops moderately distended. Moderate volume stool in the colon. No secondary signs for appendicitis. Abdominal aorta normal in caliber. Bladder partially distended. No free pelvic fluid. No inguinal lym phadenopathy. No aggressive osseous process. IMPRESSION: Limited evaluation without contrast. No CT evidence for acute abnormality of the abdomen/pelvis.
[2025-07-14 17:45] VITALS: BP 107/58; PULSE 46; RESP 18; TEMP 98.3; O2SAT 100
[2025-07-14] MEDS: SUCRALFATE 1 GM TAB PO SCH (18:00)
[2025-07-14 18:10] VITALS: BP 113/61; PULSE 75; RESP 16; TEMP 98; O2SAT 96
[2025-07-14 18:27] LABS: Cannabinoid Screen, Urine Pos (NEGATIVE); Opiate Scree,Urine Neg (NEGATIVE)
[2025-07-14 18:38] LABS: Amphetamine Screen, Urine Neg (NEGATIVE); Barbiturate Scree,Urine Neg (NEGATIVE); Benzodiazephine Screen, Urine Neg (NEGATIVE); Cocaine Screen, Urine Neg (NEGATIVE); Phencyclidine Screen, Urine Neg (NEGATIVE)
[2025-07-14] MEDS: HYDROcodone-ACET 5/325MG TAB PO PRN (18:52)
[2025-07-14] MEDS: METOCLOPRAMIDE HCL 5MG/ml INJ 2ml VIAL IV PRN (18:52)
[2025-07-14 20:00] VITALS: PULSE 46; PULSE 48; RESP 17; O2SAT 97
[2025-07-14 21:00] VITALS: BP 97/47; PULSE 46; RESP 17; TEMP 98; O2SAT 97
[2025-07-14] MEDS: PANTOPRAZOLE 40 MG/10 ML VIAL INJ IV SCH (21:27)
[2025-07-15] VITALS (7 sets, daily range): BP systolic 101–121; BP diastolic 50–72; PULSE 44–61; RESP 16–18; TEMP 97–98.5; O2SAT 95–100
[2025-07-15 06:28] LABS: Hematocrit 36.2 % (41.0-53.0); Hemoglobin 11.9 g/dL (13.5-17.5); Mean Corpuscular Hemoglobin 28.3 pg (28.0-32.0); Mean Corpuscular Volume 86.1 fL (80.0-100.0); Nucleated Red Blood Cells % 0.0 %
[2025-07-15 06:45] LABS: Albumin 3.9 g/dL (3.2-4.8); Anion Gap 9 (5-15); BUN/Creatinine Ratio 6.5 (10.0-20.0); Calcium 9.1 mg/dL (8.7-10.4); Carbon Dioxide 27 mmol/L (20-31); Chloride 104 mmol/L (98-107); Magnesium 2.0 mg/dL (1.6-2.6); Sodium 140 mmol/L (136-145); Total Protein 6.4 g/dL (5.7-8.2)
[2025-07-15 06:46] LABS: Bilirubin, Total 1.1 mg/dL (0.2-1.0)
[2025-07-15 06:48] LABS: Alanine Aminotransferase < 9 U/L (7-40); Alkaline Phosphatase 43 U/L (46-116); Blood Urea Nitrogen 5 mg/dL (9-23); Glucose 111 mg/dL (74-106); Potassium 3.5 mmol/L (3.5-5.1)
--- NOTE | 2025-07-15 11:00 | DVHPN2 ---
Subjective The patient seen and examined at bedside. Nausea/vomiting improved. Reviewed: Care Plan, H&P, Labs, Medications, Previous Orders, Radiology Changes from previous H/P or p: No Changes Eyes: No Pain, No Vision change, No Conjunctivae inflammation, No Eyelid inflammation, No Other, No Redness ENT: No Ear pain, No Ear discharge, No Nose pain, No Nose discharge, No Nose congestion, No Mouth pain, No Mouth swelling, No Throat pain, No Throat swelling, No Other Cardiovascular: No Chest Pain, No Palpitations, No Orthopnea, No Paroxysmal Noc. Dyspnea, No Edema, No Lt Headedness, No Other Respiratory: No Cough, No Dry, No Shortness of breath, No SOB with excertion, No Wheezing, No Hemoptysis, No Pleuritic Pain, No Sputum, No Other Gastrointestinal: Nausea, Vomiting, Abdominal Pain (RLQ & LLQ pain); No Diarrhea, No Constipation, No Melena, No Hematochezia, No Other Genitourinary: No Dysuria, No Frequency, No Incontinence, No Hematuria, No Retention, No Other Musculoskeletal: No other, No neck pain, No shoulder pain, No arm pain, No back pain, No hand pain, No leg pain, No foot pain Skin: No Rash, No Lesions, No Jaundice, No Bruising, No Other Objective Vitals Vital Signs Date Time Temp Pulse Resp B/P (MAP) Pulse Ox O2 Delivery O2 Flow Rate FiO2 07/15/25 09:00 97.9 50 16 101/50 (67) 100 97.9 07/15/25 08:00 Room Air* 0 21 Intake/Output Intake and Output 07/15/25 07:00 Intake Total 600 ml Balance 600 ml Intake Oral 300 ml IV Total 300 ml # Voids 6 General Appearance: Alert, Oriented X3, Cooperative HEENT: Atraumatic, PERRLA, EOMI, Mucous membr. moist/pink Neck: Supple Lungs: Clear to auscultation, Normal air movement Cardiovascular: Regular rate, Normal S1, Normal S2, No murmurs, Gallops, Rubs Abdomen: Normal bowel sounds, Soft, No tenderness Neuro: Cranial nerves 3-12 NL Psych/Mental Status: Mental status NL Medications Current Medications Medications Dose Ordered Sig/Laila Route Start Time Stop Time Status Last Admin Dose Admin Acetaminophen/ Hydrocodone Bitart 1 tab Q4HP PRN PO 07/14/25 13:00 07/15/25 04:11 1 TAB Docusate Sodium 100 mg BIDPRN PRN PO 07/14/25 13:00 Acetaminophen 650 mg Q6HP PRN PO 07/14/25 13:00 Morphine Sulfate 2 mg Q4HPRN PRN IV 07/14/25 13:00 Nitroglycerin 0.4 mg Q5MINP PRN SL 07/14/25 13:00 Morphine Sulfate 2 mg Q30M PRN IV 07/14/25 13:00 Metoclopramide HCl 10 mg Q6HPRN PRN IV 07/14/25 13:00 07/14/25 18:52 10 MG Sucralfate 1 gm QIDACHS PO 07/14/25 17:00 07/15/25 06:07 1 GM Pantoprazole Sodium 40 mg BID IV 07/14/25 22:00 07/15/25 09:26 40 MG Laboratory Results Laboratory Tests 07/15/25 05:26 Chemistry Test 07/15/25 05:26 Albumin 3.9 g/dL (3.2-4.8) Calcium Level 9.1 mg/dL (8.7-10.4) Magnesium Level 2.0 mg/dL (1.6-2.6) Total Protein 6.4 g/dL (5.7-8.2) LFT Test 07/15/25 05:26 Alanine Aminotransferase (ALT) < 9 U/L (7-40) Alkaline Phosphatase 43 U/L (46-116) L Aspartate Amino Transferase (AST) 17 U/L (13-40) Total Bilirubin 1.1 mg/dL (0.2-1.0) H Labs and/or images reviewed: Labs reviewed by me Assessment/Plan Assessment/Plan Hypokalemia, Acute gastroenteritis, Hypocalcemia, Marijuana abuse 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 Plan: Continue current management with IVF and zofran PRN Advance diet to regular. Advise to stop using marijuana Plan discussed with: Patient Date of Service: Jul 15, 2025 Billing Provider: HERRERA SOLIS MD Common Visit Codes: [id number] INP/OBS CARE(HIGH) HERRERA SOLIS MD Jul 15, 2025 11:00
[2025-07-15] MEDS: MORPHINE SULFATE INJ 2 MG/ml SYRG IV PRN (22:35)
[2025-07-16 01:00] VITALS: BP 104/58; PULSE 55; RESP 17; TEMP 98.1; O2SAT 100
[2025-07-16 05:00] VITALS: BP 111/68; PULSE 55; RESP 17; TEMP 98.2; O2SAT 100
[2025-07-16 07:25] LABS: Hematocrit 35.1 % (41.0-53.0); Hemoglobin 12.0 g/dL (13.5-17.5); Mean Corpuscular Hemoglobin 29.1 pg (28.0-32.0); Mean Corpuscular Volume 85.0 fL (80.0-100.0); Nucleated Red Blood Cells % 0.1 %
[2025-07-16 07:27] LABS: Anion Gap 10 (5-15); Carbon Dioxide 29 mmol/L (20-31); Chloride 103 mmol/L (98-107); Sodium 142 mmol/L (136-145)
[2025-07-16 07:28] LABS: Calcium 9.3 mg/dL (8.7-10.4)
[2025-07-16 07:33] LABS: BUN/Creatinine Ratio 6.3 (10.0-20.0); Glucose 93 mg/dL (74-106)
[2025-07-16 07:43] LABS: Blood Urea Nitrogen 5 mg/dL (9-23); Potassium 3.5 mmol/L (3.5-5.1)
[2025-07-16 08:00] VITALS: PULSE 51
[2025-07-16 09:00] VITALS: BP 113/77; PULSE 59; RESP 19; TEMP 97.9; O2SAT 100
--- NOTE | 2025-07-16 10:54 | DVHDS2 ---
Discharge Summary Date of Admission Jul 14, 2025 at 12:46 Date of Discharge: Jul 16, 2025 Admitting Diagnosis Hypokalemia, Acute gastroenteritis, Hypocalcemia, Marijuana abuse 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 Labs/Diagnostic Data: Laboratory Results Test 07/16/25 06:33 07/15/25 05:26 07/14/25 17:58 White Blood Count 6.8 10^3/uL (4.4-10.8) Red Blood Count 4.13 10^6/uL (4.5-5.90) Hemoglobin 12.0 g/dL (13.5-17.5) Hematocrit 35.1 % (41.0-53.0) Mean Corpuscular Volume 85.0 fL (80.0-100.0) Mean Corpuscular Hemoglobin 29.1 pg (28.0-32.0) Mean Corpuscular Hemoglobin Concent 34.2 g/dL (32.0-36.0) Red Cell Distribution Width 12.6 % (11.8-14.3) Platelet Count 232 10^3/uL (140-450) Mean Platelet Volume 8.6 fL (6.9-10.8) Neutrophils (%) (Auto) 54.3 % (37.0-80.0) Lymphocytes (%) (Auto) 36.4 % (10.0-50.0) Monocytes (%) (Auto) 7.1 % (0.0-12.0) Eosinophils (%) (Auto) 1.2 % (0.0-7.0) Basophils (%) (Auto) 1.0 % (0.0-2.0) Neutrophils # (Auto) 3.7 10 ^3/uL (1.6-8.6) Lymphocytes # (Auto) 2.5 10 ^3/uL (0.4-5.4) Monocytes # (Auto) 0.5 10 ^3/uL (0-1.3) Eosinophils # (Auto) 0.1 10 ^3/uL (0-0.8) Basophils # (Auto) 0.1 10 ^3/uL (0-0.2) Nucleated Red Blood Cells 0.1 % Sodium Level 142 mmol/L (136-145) Potassium Level 3.5 mmol/L (3.5-5.1) Chloride Level 103 mmol/L (98-107) Carbon Dioxide Level 29 mmol/L (20-31) Anion Gap 10 (5-15) Blood Urea Nitrogen 5 mg/dL (9-23) Creatinine 0.80 mg/dL (0.700-1.30) Glomerular Filtration Rate Calc 121 mL/min (>90) BUN/Creatinine Ratio 6.3 (10.0-20.0) Serum Glucose 93 mg/dL (74-106) Calcium Level 9.3 mg/dL (8.7-10.4) Magnesium Level 2.0 mg/dL (1.6-2.6) Total Bilirubin 1.1 mg/dL (0.2-1.0) Aspartate Amino Transferase (AST) 17 U/L (13-40) Alanine Aminotransferase (ALT) < 9 U/L (7-40) Alkaline Phosphatase 43 U/L (46-116) Total Protein 6.4 g/dL (5.7-8.2) Albumin 3.9 g/dL (3.2-4.8) Urine Opiates Screen Neg (NEGATIVE) Urine Fentanyl Screen Neg (NEGATIVE) Urine Barbiturates Screen Neg (NEGATIVE) Urine Phencyclidine Screen Neg (NEGATIVE) Urine Amphetamines Screen Neg (NEGATIVE) Urine Benzodiazepines Screen Neg (NEGATIVE) Urine Cocaine Screen Neg (NEGATIVE) Urine Cannabinoids Screen Pos (NEGATIVE) Other Laboratory Tests 07/16/25 06:33 Brief Hx & Hospital Course: This is a 29 years old male with past medical history of abdominal pain, nausea, vomiting come to emergency department because of abdominal pain. He stated that he had been experience abdominal pain with associated nausea and vomiting for five days. He has had not been eating for the last couple day. He also had episode of intractable nausea and vomiting. About five months ago he had a colonoscopy done but they did not find anything. Patient is a daily marijuana smoker. The patient was admitted. The patient was given IV fluid. Hemoglobin is stable. The patient nausea and vomiting.. I am going to discharge the patient home today. Advised the patient to stop using marijuana because this can induce cyclic vomitus. Advised the patient to follow up with primary care physician 1-2 weeks. Activity as tolerated. Diet per home diet. Physical exam: HEENT: Normocephalic atraumatic pupils equal react to light and accommodation. Extraocular muscles intact, conjunctiva pink, oropharynx moist, no thrush, no exudate. Lymphatic: No lymphadenopathy Cardiovascular exam: S1, S2 was heard. No murmurs, rubs, gallops Lung: Clear on auscultation bilaterally, no wheeze, rale, rhonchi. GI: Abdominal soft, nondistended, nontenderness, positive bowel sounds. Extremity: No crepitus, cyanosis, edema. Pedal pulses present bilateral. Full range of motion. Skin: Normal turgor, no rash. Psych: Alert, oriented x3. Neurology: No focal deficits, cranial nerve II to XII grossly intact. This medical document was created using an electronic medical record system with [employer] computerized dictation system. Although this document has been carefully reviewed, there may still be some phonetic and typographical errors. These areas are purely typographical due to imperfections of the software programs, and do not reflect any compromise in the patient's medical care. 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 Discharge Disposition: Home Discharge Instruct/Medications Scheduled Famotidine (Pepcid Tablet), 1 TAB PO BID, (Reported) Scheduled PRN Ondansetron Odt 4MG Tab (Zofran Po), 4 MG PO Q4HPRN PRN Discontinued Medications Metoclopramide HCl (Metoclopramide Hydrochlor), 1 TAB PO Q6HPRN PRN, (Reported) Discharge Statement: "Patient was advised to return to the ER or call 911 if any headaches, dizziness, shortness of breath, chest pain, abdominal pain, bleeding, fevers, or worsening of medical condition. Patient was counseled about treatment plan, medications, possible side effects, patientverbalized understanding. All questions were answered to the best of my ability. This discharge took greater then 30 minutes in planning, reviewing documentation, counseling the patient, and discussing with other team members." ASSESSMENT ASSESSMENT Assessment Date of Service: Jul 16, 2025 Billing Provider: HERRERA SOLIS MD Common Visit Codes: [id number] DISCH DAY >30min HERRERA SOLIS MD Jul 16, 2025 10:54
[2025-07-16] MEDS ORDERED: ZOFR4T PO (12:27)
--- NOTE | 2025-07-16 14:13 | ECG ---
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
[2025-07-16 14:30] VITALS: BP 117/60; PULSE 57; RESP 17; TEMP 97.9; O2SAT 99
== END 2025-07-16 15:22 | disposition home or self-care (01) | DRG 249 ==
LOC: EDBD 07:17 → ER 07:17 → OVERFLOW 12:46 → TELE-WESTW 17:17
PROVIDERS: ADMIT Internal Medicine; ATTEND Internal Medicine
DX: K52.9 Noninfective gastroenteritis and colitis, unspecified (principal); E83.51 Hypocalcemia; E87.6 Hypokalemia; F12.10 Cannabis abuse, uncomplicated; F17.210 Nicotine dependence, cigarettes, uncomplicated; R11.15 Cyclical vomiting syndrome unrelated to migraine
CPT/HCPCS: 36415; 74177; 80048; 80053; 80307; 83735; 85025; 93005; 96361; 96374; G0378; J2405; J2470; J3480